=== PATIENT | female | born 1995 | race Asian ===

== ENCOUNTER → 2025-07-01 12:56 | Outpatient (CLI) | payer OTHER, SELFPAY ==
--- NOTE | 2025-07-01 12:57 | DI.ECHO.S_ITS ---
[facility] : : [id number] : : [place] : : [id number] : : Phone: [phone] Echocardiogram Report + + :Name: ALLEN DILLON Study Date: 07/01/2025 Height: 62 in : :[facility] ReadingLocation: Weight: 90 lb : : Gender: Female BSA: 1.4 m2 : :: 1995 Age: 29 yrs BP: 109/70 mmHg: :Reason For Study: Murmur : :Ordering Physician: SANKET, : :PEACE Performed By: Ahmet Castellon : :Referring: PEACE COLES : + + Interpretation Summary The ejection fraction is estimated to be 55-60%. Normal diastolic function. The right ventricle grossly appears normal in size with probable normal systolic function. There is trace aortic regurgitation. Pulmonary artery pressures cannot be estimated because of the lack of a measurable TR jet velocity but the IVC suggests a CVP of around 3 mmHg. Procedure: A two-dimensional transthoracic echocardiogram with color flow Doppler was performed. Technically challenging exam, patients heart sits midline in the chest, images off axis. There is no prior echocardiogram noted for this patient. The patient was in normal sinus rhythm during the exam. Left Ventricle: The left ventricle is normal in size and wall thickness. Left ventricular systolic function is normal. The ejection fraction is estimated to be 55-60%. There are no focal wall motion abnormalities. Normal diastolic function. Right Ventricle: The right ventricle is not well visualized. The right ventricle grossly appears normal in size with probable normal systolic function. Atria: The left atrial size is normal. Right atrium not well visualized. There is no Doppler evidence for an interatrial shunt. Mitral Valve: The mitral valve leaflets appear to open well. There is no mitral valve stenosis. There is trace mitral regurgitation. Aortic Valve: The aortic valve is trileaflet. The aortic valve opens well. There is no aortic valve stenosis. There is trace aortic regurgitation. Tricuspid Valve: The tricuspid valve is not well visualized, but is grossly normal. There is a trace or physiologic amount of tricuspid regurgitation. Pulmonary artery pressures cannot be estimated because of the lack of a measurable TR jet velocity but the IVC suggests a CVP of around 3 mmHg. Pulmonic Valve: The pulmonic valve is not well seen, but is grossly normal. There is trace pulmonic regurgitation. Great Vessels: The aortic root is normal size. The ascending aorta is normal in size. The aortic arch could not be visualized. The IVC is of normal diameter and collapses greater than 50% with a sniff. This suggests a low right atrial pressure of 3 mm Hg. Pericardium/ Pleura There is no pericardial effusion. MMode/2D Measurements & Calculations LVIDd: 4.2 cm LA A2 area: 14.4 cm2 LVIDs: 2.7 cm LA A4 area: 11.2 cm2 FS: 34.8 % LA length (vol): 4.2 cm IVSd: 0.79 cm LA vol: 32.7 ml LVPWd: 0.77 cm LA vol index: 24.0 ml/m2 LV jeffers. diameter/BSA (cm/m^2): 3.1 LV sys. diameter/BSA (cm/m^2): 2.0 IVC diam: 1.5 cm RVD1 (basal): 2.1 cm RVD2 (mid): 1.9 cm TAPSE: 1.7 cm Doppler Measurements & Calculations Ao V2 max: 131.5 cm/sec LVOT Max Oz: 99.9 cm/sec Ao V2 mean: 88.3 cm/sec LV V1 max P.0 mmHg Ao max P.9 mmHg LV V1 VTI: 21.4 cm Ao mean P.6 mmHg sev ratio: 0.83 Ao V2 VTI: 25.7 cm MV E max oz: 104.2 cm/sec PA V2 max: 148.4 cm/sec MV A max oz: 60.9 cm/sec PA V2 mean: 110.2 cm/sec MV E/A: 1.7 PA mean P.3 mmHg Med Peak E' Oz: 9.1 cm/sec PA pr(Accel): 12.2 mmHg E/E' med: 11.5 Lat Peak E' Oz: 16.7 cm/sec E/E' lat: 6.2 E/e' average: 8.8 MV dec time: 0.23 sec Reading Physician:05:22 PM
== END ==
PROVIDERS: PCP Student in an Organized Health Care Education/Training Program; Referring Provider Student in an Organized Health Care Education/Training Program; Visit Provider Student in an Organized Health Care Education/Training Program
DX: R01.1 Cardiac murmur, unspecified (principal)
CPT/HCPCS: 93306

== ENCOUNTER → 2025-07-22 15:05 | Outpatient (CLI) | payer OTHER, SELFPAY ==
[2025-07-22 16:20] LABS: Add Manual Diff / Slide Review NO; Hematocrit 38.8 % (36-46); Hemoglobin 13.1 g/dL (12.0-16.0); Lymphocytes Absolute Auto 1200 /uL (1100-4500); Mean Corpuscular HGB Conc 33.8 % (30-36); Mean Corpuscular Hemoglobin 31.7 PG (26-34); Mean Corpuscular Volume 93.8 fL (80-100); Platelet Count 194 X10^3/uL (150-400)
== END ==
PROVIDERS: PCP Student in an Organized Health Care Education/Training Program; Referring Provider Internal Medicine Critical Care Medicine; Visit Provider Internal Medicine Critical Care Medicine
DX: J45.40 Moderate persistent asthma, uncomplicated (principal)
CPT/HCPCS: 36415; 85025; 86003

== ENCOUNTER → 2025-08-01 11:23 | Outpatient (CLI) | payer OTHER, SELFPAY ==
--- NOTE | 2025-08-01 11:24 | DI.US.S_ITS ---
MM diagnostic mammo BI, US breast LT limited: 08/01/2025 BI-RADS: 1 CLINICAL: 29-year old female for bilateral diagnostic mammogram and left diagnostic breast ultrasound. Tyrer-Cuzick lifetime risk of 11.8%. No personal or first- degree family history of breast cancer. History of ovarian cancer in one first-degree relative. The patient reports pain (more than 2 years) in the left breast. PRIOR EXAMS: None. This is a baseline examination. MAMMOGRAPHY TECHNIQUE: 2D and 3D (tomosynthesis) digital mammographic views obtained, with additional images as needed for full coverage. Current study was also evaluated with a Computer Aided Detection (CAD) system. ULTRASOUND TECHNIQUE: Real-time ponce scale imaging of the area of clinical interest was performed with image documentation. TARGETED Left Breast Ultrasound: Real-time ultrasound exam was performed focused to area of clinical and/or imaging concern. DENSITY D. The breasts are extremely dense, which lowers the sensitivity of mammography. MAMMOGRAPHY FINDINGS Right: No suspicious mass, asymmetry, microcalcification, or other abnormality seen. Left (finding-1): Lower Inner Quadrant, Middle depth: A skin marker was placed in the area of concern, and no mammographic abnormalities are identified or to account for concern by the patient of pain/tenderness. No suspicious mass, asymmetry, microcalcification, or other abnormality seen. ULTRASOUND FINDINGS Left (finding-1): Inner at 9:00, 4 cm from nipple: Underlying the surface marker, there is no sonographic abnormality to account for concern by the patient of pain/tenderness. IMPRESSION: * No evidence of malignancy. RECOMMENDATIONS Left * Clinical follow-up is recommended, and further management of focal signs or symptoms should be based on the results of clinical evaluation. If concerning symptom persists or progresses, further clinical evaluation should be considered. Bilateral * Annual screening mammography beginning at age 40. COMMENTS: Findings and recommendations were conveyed to the patient during today's evaluation. OVERALL ASSESSMENT CATEGORY BI-RADS-1: Negative. The [employer] recommends annual screening mammography beginning at age 40 for women with average risk of breast cancer. ELECTRONICALLY SIGNED: Juani Fernandez M.D. on 08/01/2025 at 01:16:55 PM PT Interpreting Station ID: [id number]
--- NOTE | 2025-08-01 11:51 | DI.CT.S_ITS ---
PROCEDURE: CT CHEST WO CON INDICATIONS: Chronic cough, severe asthma, eval for bronchiectasis TECHNIQUE: Noncontrast 5 mm thick sections acquired from the pulmonary apices to the posterior costophrenic angles. 1 mm lung window, 5 mm thick coronal and sagittal and 7 mm axial MIP reformats were then acquired. For radiation dose reduction, the following was used: automated exposure control, adjustment of mA and/or kV according to patient size. COMPARISON: None. FINDINGS: Image quality: Diagnostic. Lower Neck: No enlarged lymph nodes. Thyroid: No thyroid nodules which require sonographic follow up, per consensus guidelines. Axillae: No enlarged lymph nodes. Chest Wall: Unremarkable. Bones: Unremarkable. Lungs and Pleura: No pneumothorax or pleural effusions. No consolidation or suspicious nodules. Heart: Heart size is normal. No pericardial effusion. Thoracic Vessels: The aorta and pulmonary arteries demonstrate normal size. Mediastinum and Emmie: No enlarged lymph nodes. Esophagus: No wall thickening. Air-fluid level in the midesophagus. Upper Abdomen: Visualized upper abdomen solid organs and bowel loops appear normal. IMPRESSION: Fluid in the esophagus which could be result of gastroesophageal reflux which may be associated with cough. No cardiopulmonary abnormality. Scoliosis. Dictated by: Finn Smith M.D. on 08/01/2025 at 15:49 Approved by: Finn Smith M.D. on 08/01/2025 at 15:53
== END ==
LOC: MAMMO 11:23
PROVIDERS: PCP Student in an Organized Health Care Education/Training Program; Referring Provider Student in an Organized Health Care Education/Training Program; Visit Provider Student in an Organized Health Care Education/Training Program
DX: N64.4 Mastodynia (principal); R05.3 Chronic cough; M41.9 Scoliosis, unspecified
CPT/HCPCS: 71250; 76642; 77066; 94060; 94726; 94729; G0279

== ENCOUNTER → 2025-08-01 14:14 | Outpatient (CLI) | payer OTHER, SELFPAY | LOC: RESP 14:14 | PROVIDERS: PCP Student in an Organized Health Care Education/Training Program; Referring Provider Student in an Organized Health Care Education/Training Program; Visit Provider Internal Medicine Critical Care Medicine | DX: R06.02 Shortness of breath (principal); R94.2 Abnormal results of pulmonary function studies | CPT/HCPCS: 94060; 94726; 94729 ==

== ENCOUNTER → 2025-09-19 15:40 | Outpatient (CLI) | payer OTHER, SELFPAY ==
[2025-09-19 17:56] LABS: Add Manual Diff / Slide Review NO; Hematocrit 39.6 % (36-46); Hemoglobin 13.4 g/dL (12.0-16.0); Lymphocytes Absolute Auto 1200 /uL (1100-4500); Mean Corpuscular HGB Conc 33.7 % (30-36); Mean Corpuscular Hemoglobin 31.9 PG (26-34); Mean Corpuscular Volume 94.4 fL (80-100); Platelet Count 183 X10^3/uL (150-400)
== END ==
PROVIDERS: PCP Student in an Organized Health Care Education/Training Program; Referring Provider Internal Medicine Critical Care Medicine; Visit Provider Internal Medicine Critical Care Medicine
DX: J45.40 Moderate persistent asthma, uncomplicated (principal)
CPT/HCPCS: 36415; 85025

== ENCOUNTER → 2025-10-17 13:56 | Outpatient (CLI) | payer OTHER, SELFPAY ==
--- NOTE | 2025-10-17 13:57 | DI.RAD.S_ITS ---
PROCEDURE: XR LUMBAR SPINE MIN 4V INDICATIONS: low back pain TECHNIQUE: 5 views of the lumbar spine acquired, including flexion and extension views. COMPARISON: None. FINDINGS: Scoliosis with rotation of the lumbar spine. L3-L4 degenerative disc disease. Vertebral body heights maintained. No fracture. Minimal motion between fraction and extension with no intersegmental hypermobility. IMPRESSION: As above Dictated by: Finn Smith M.D. on 10/17/2025 at 15:43 Approved by: Finn Smith M.D. on 10/17/2025 at 15:45
== END ==
PROVIDERS: PCP Student in an Organized Health Care Education/Training Program; Referring Provider Physical Medicine & Rehabilitation; Visit Provider Physical Medicine & Rehabilitation
DX: M51.360 Other intervertebral disc degeneration, lumbar region with discogenic back pain only (principal); M41.9 Scoliosis, unspecified
CPT/HCPCS: 72110